=== PATIENT | female | born 1940 | race Caucasian/White ===

== ENCOUNTER 2021-07-12 12:38 | Outpatient (CLI) | payer OTHER ==
[~2021-07-12 12:38] MED LIST: FLONASE16 G1 NS; LIPO-FLAVONOID1 EACH PO
== END 2021-07-12 12:49 | disposition home or self-care (01) ==
LOC: RAD 12:38
PROVIDERS: ATTEND Physical Medicine & Rehabilitation
DX: M54.5 Low back pain (principal); M54.6 Pain in thoracic spine

== ENCOUNTER 2022-11-13 11:17 | Emergency (ER) | payer OTHER ==
[~2022-11-13] VITALS: Ht 157.5 cm; Wt 62.6 kg
== END 2022-11-13 15:56 | disposition home or self-care (01) ==
LOC: ER 11:17
DX: S01.112A Laceration without foreign body of left eyelid and periocular area, initial encounter (principal); S09.90XA Unspecified injury of head, initial encounter; W18.30XA Fall on same level, unspecified, initial encounter; Y93.9 Activity, unspecified; Y92.89 Other specified places as the place of occurrence of the external cause; Y99.9 Unspecified external cause status; Z88.8 Allergy status to other drugs, medicaments and biological substances; Z91.013 Allergy to seafood